=== PATIENT | female | born 1960 ===

== ENCOUNTER 2022-10-20 16:42 | Inpatient (IN) | payer MEDICARE, MEDICAID, SELFPAY ==
[2022-10-20 17:28] VITALS: BP 134/82; PULSE 70; RESP 18; TEMP 36.9; O2SAT 100
[2022-10-20 17:38] VITALS: BMI 21.2
[2022-10-20 18:00] VITALS: BP 127/78; PULSE 72; RESP 18; TEMP 36.1; O2SAT 98
--- NOTE | 2022-10-20 18:28 | PC.ADMIT ---
Yana Kent was admitted to at 1654 from [facility] on a section 12B for decompensation of bipolar disorder. She signed a CV with this movie writer. The precipitant of admission includes unable to care for self due to hallucinations and delusions. Yana is alert and oriented x 4. She is calm and cooperative with admission process. She is tearful and endorses some anxiety. Yana denied SI/HI/AVH but she has some delusional thought content about people shoving things under my door including bugs. She reports she is eating and sleeping well. 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 Tox screen from [facility] positive for benzos and stimulants (takes Klonopin) and she denies any current substance use however crisis assessment reports she has stimulant use d/o. She denies any physical complaints and dinner provided. Yana was placed on 5 minute checks per unit policy. Will continue to monitor for safety and changes in behavior.
--- NOTE | 2022-10-20 18:41 | PC.NURSE ---
Contacted Mirza RN at [place] [id number] for EKG as it was not in crisis assessment however did not receive it via fax. Per RN report sinus robby 58. HR 70 and regular when vitals done here. Dr. Polk notified that EKG not received.
[2022-10-20] MEDS: Gabapentin 400 MG CAPSULE 800 MG PO (20:54)
[2022-10-20] MEDS: clonazePAM 1 MG TABLET PO (20:55)
[2022-10-21] MEDS: buPROPion HCl XL 150 MG TAB.ER.24H PO (08:15)
[2022-10-21] MEDS: OLANZapine 5 MG TABLET PO ×2 (08:15→20:27)
[2022-10-21] MEDS: Levothyroxine Sodium 50 MCG TABLET PO (08:15)
[2022-10-21] MEDS: Gabapentin 400 MG CAPSULE 800 MG PO ×3 (08:15→20:27)
[2022-10-21] MEDS: clonazePAM 1 MG TABLET PO ×3 (08:15→20:26)
[2022-10-21] MEDS: Atorvastatin Calcium 80 MG TABLET PO (08:15)
[2022-10-21 08:47] VITALS: BP 136/82; PULSE 63; RESP 18; TEMP 36.9; O2SAT 99
[2022-10-21 08:52] LABS: Estimated Average Glucose 97 mg/dL
[2022-10-21 08:53] LABS: Alanine Aminotransferase 21 U/L (0-31); Albumin Level 3.8 g/dL (3.5-5.0); Alkaline Phosphatase 65 U/L (39-117); Anion Gap 12 (12-20); Aspartate Amino Transferase 19 U/L (5-31); Bilirubin Total 0.9 mg/dL (0.0-1.0); Blood Urea Nitrogen 25 mg/dL (9-16); Calcium 9.9 mg/dL (8.4-10.2); Carbon Dioxide 29 mmol/L (22-29); Chloride 107 mmol/L (96-108); Cholesterol 201 mg/dL; Creatinine Clr Calc Pharmacy 88.5; Estimated Glomerular Filt Rate > 60; Glucose Fasting 113 mg/dL (60-99); HDL Cholesterol 55 mg/dL; LDL Cholesterol Calculated 116 mg/dl; Potassium 4.6 mmol/L (3.3-5.1); Sodium 143 mmol/L (135-145); Total Protein 6.2 g/dL (6.5-8.0); Triglycerides 151 mg/dL
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
--- NOTE | 2022-10-21 13:54 | PC.NURSE ---
Patient asking for Adderall. Dr. Polk updated and visited with Patient. New orders obtained to start Adderall 5mg PO BID at 0800 and 1700. Zyprexa now 5mg PO at bedtime only.
[2022-10-21] MEDS: Amphetamine Mixed Salts 10 MG TABLET 5 MG PO (16:11)
[2022-10-21 18:00] VITALS: BP 121/77; PULSE 70; RESP 18; TEMP 36.3; O2SAT 100
[2022-10-22] MEDS: Levothyroxine Sodium 50 MCG TABLET PO (04:07)
[2022-10-22 07:30] VITALS: BP 146/92; PULSE 69; RESP 18; TEMP 36.9; O2SAT 99
[2022-10-22] MEDS: Gabapentin 400 MG CAPSULE 800 MG PO ×3 (08:44→20:00)
[2022-10-22] MEDS: buPROPion HCl XL 150 MG TAB.ER.24H PO (08:44)
[2022-10-22] MEDS: Atorvastatin Calcium 80 MG TABLET PO (08:44)
[2022-10-22] MEDS: clonazePAM 1 MG TABLET PO ×3 (08:44→20:00)
[2022-10-22] MEDS: Amphetamine Mixed Salts 10 MG TABLET 5 MG PO ×2 (08:44→15:20)
--- NOTE | 2022-10-22 11:39 | P.PNPSI_ITS ---
Subjective Subjective Date of Service: 10/22/22 Reason For Visit: Bipolar disorder Subjective Notes: Conditional Voluntary and 3 Day Interim History: The nursing staff reported the patient had been fully compliant with medications and meals. She has been pleasant and cooperative. The social media community manager reported that she has [facility] S services. The occupational therapist reported that she scored 20/30 on Burt and Jayant test of 4.8 that shows mild cognitive impairment. On interview the patient denies new symptoms she was to be discharged as soon as possible, this moment no safety concerns we will try to get more collateral information. Mental Status Exam Mental Status Exam Patient Appearance: Well Grooomed and Appropriate Patient Orientation: Person and Situation Level of Consciousness: Awake and Appropriate Patient Behavior: Guarded and Passive Mood Description: Withdrawn Affect Description: Constricted Patient Cognition Impaired: Yes Ability to Follow Directions: Good Speech Pattern: Clear Hallucinations: None Delusions: Not Present Thought Process: Distracted and Slowed Thinking Thought Content: positive for [place] and positive for Circumstantial Judgement: Fair Diagnostics Vital Signs (24Hr): Vital Signs - 24 hr 10/21/22 18:00 10/22/22 07:30 Temperature 97.4 F 98.4 F Pulse Rate 70 69 Respiratory Rate 18 18 Blood Pressure 121/77 146/92 H Pulse Oximetry 100 99 Oxygen Delivery Method Room Air Room Air BMI result Body Mass Index 21.2 Labs 10/21/22 08:10 Labs: Laboratory Results - last 48 hr 10/21/22 10/21/22 08:10 08:10 Sodium 143 Potassium 4.6 Chloride 107 Carbon Dioxide 29 Anion Gap 12 BUN 25 H Creatinine 0.64 Estim Creat Clear Calc 88.5 Estimated GFR > 60 Fasting Glucose 113 H Estimat Average Glucose 97 Hemoglobin A1c % 5.0 Calcium 9.9 Total Bilirubin 0.9 AST 19 ALT 21 Alkaline Phosphatase 65 Total Protein 6.2 L Albumin 3.8 Triglycerides 151 Cholesterol 201 LDL Cholesterol, Calc 116 HDL Cholesterol 55 Medications Medications Current Medications Acetaminophen (Acetaminophen 325 Mg Tablet) 650 mg PO Q6H PRN PRN Reason: Headache/Pain Mild Scale (1-3) Al Hydroxide/Mg Hydroxide (Magnesium Hydrox/Alum Hydrox 30 Ml Oral.Susp) 30 ml PO Q6H PRN PRN Reason: Heartburn/Nausea Amphetamine/Dextroamphetamine (Amphetamine Mixed Salts 10 Mg Tablet) 5 mg PO BID@0800,1700 [facility] Last Admin: 10/22/22 08:44 Dose: 5 mg Atorvastatin Calcium (Atorvastatin Calcium 80 Mg Tablet) 80 mg PO DAILY [facility] Last Admin: 10/22/22 08:44 Dose: 80 mg Bupropion HCl (Bupropion Hcl Xl 150 Mg Tab.Er.24h) 150 mg PO DAILY [facility] Last Admin: 10/22/22 08:44 Dose: 150 mg Clonazepam (Clonazepam 1 Mg Tablet) 1 mg PO TID [facility] Last Admin: 10/22/22 08:44 Dose: 1 mg Gabapentin (Gabapentin 400 Mg Capsule) 800 mg PO TID [facility] Last Admin: 10/22/22 08:44 Dose: 800 mg Levothyroxine Sodium (Levothyroxine Sodium 50 Mcg Tablet) 50 mcg PO DAILY@0600 [facility] Last Admin: 10/22/22 04:07 Dose: 50 mcg Magnesium Hydroxide (Milk Of Magnesia 30 Ml Oral.Susp) 30 ml PO DAILY PRN PRN Reason: Constipation Olanzapine (Olanzapine 5 Mg Tablet) 5 mg PO BEDTIME [facility] Last Admin: 10/21/22 20:27 Dose: 5 mg Allergies Allergies Allergy/AdvReac Type Severity Reaction Status Date / Time No Known Allergies Allergy Verified 10/20/22 17:10 Assessment & Plan Assessment & Plan (1) Routine history and physical examination of adult: Status: Acute Code(s): Z00.00 - Encounter for general adult medical examination without abnormal findings Plan t is a 62-year-old female with a PMH significant for?hypothyroidism, HLD, and scoliosis who is admitted to [facility] for active delusions/paranoia/hallucinations causing inability to care her herself at home. Medical consult for admission H&P. ?Patient states she is overall ?very healthy? with very few chronic medical conditions and no acute medical complaints at this time. Mood disorder Plan as per Psychiatry Hypothyroidism Continue levothyroxine HLD Continue statin Thank you for allowing us to participate in the care of this patient. Signing off at this time. Please let us know if there are any acute complaints or questions. Plan 1. Gather collateral information. 2. Continue with the same medications. 3. Reassessment with results. Reason for continued inpatient stay Substantial Risk for: inability to function, rapid decompensation and med/psych decompensation Time Spent With Patient Time: Total time managing care of this patient today __20__ minutes.
[2022-10-22 14:04] VITALS: BMI 22.8
[2022-10-22 19:59] VITALS: BP 112/72; PULSE 71; RESP 18; TEMP 36.2; O2SAT 100
[2022-10-22] MEDS: OLANZapine 5 MG TABLET PO (20:00)
[2022-10-23] MEDS: Levothyroxine Sodium 50 MCG TABLET PO (04:53)
[2022-10-23 08:21] VITALS: BP 118/85; PULSE 65; RESP 15; TEMP 36.2; O2SAT 100
[2022-10-23] MEDS: Amphetamine Mixed Salts 10 MG TABLET 5 MG PO ×2 (08:22→15:46)
[2022-10-23] MEDS: clonazePAM 1 MG TABLET PO ×3 (08:23→20:43)
[2022-10-23] MEDS: Atorvastatin Calcium 80 MG TABLET PO (08:23)
[2022-10-23] MEDS: Gabapentin 400 MG CAPSULE 800 MG PO ×3 (08:23→20:43)
[2022-10-23] MEDS: buPROPion HCl XL 150 MG TAB.ER.24H PO (08:23)
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
[2022-10-23 18:00] VITALS: BP 112/73; PULSE 74; RESP 18; TEMP 36.6; O2SAT 99
[2022-10-23] MEDS: OLANZapine 5 MG TABLET PO (20:43)
[2022-10-24] MEDS: Levothyroxine Sodium 50 MCG TABLET PO (06:29)
[2022-10-24 08:15] VITALS: BP 113/82; PULSE 61; RESP 12; TEMP 37.1; O2SAT 99
[2022-10-24] MEDS: Atorvastatin Calcium 80 MG TABLET PO (08:18)
[2022-10-24] MEDS: Amphetamine Mixed Salts 10 MG TABLET 5 MG PO ×2 (08:18→15:20)
[2022-10-24] MEDS: clonazePAM 1 MG TABLET PO ×3 (08:19→20:20)
[2022-10-24] MEDS: buPROPion HCl XL 150 MG TAB.ER.24H PO (08:19)
[2022-10-24] MEDS: Gabapentin 400 MG CAPSULE 800 MG PO ×3 (08:19→20:20)
--- NOTE | 2022-10-24 17:01 | HO.PSYCHPN ---
Subjective Subjective Date of Service: 10/24/22 Reason For Visit: Bipolar disorder Subjective Notes: 3 Day (expires 10/26) Medical Problems Affecting Mental Status: No Interim History: Remains delusional, stating that people are breaking into her home and causing a mess. Wants to find section 8 housing elsewhere Medication Compliance: Yes Side effects from medications: No Attending Groups: Yes Review of Systems Acute medical concerns: No Medical Review of Systems: unchanged Mental Status Exam Mental Status Exam Patient Appearance: Unkempt Patient Orientation: Person, Place, Time and Situation Level of Consciousness: Awake Patient Behavior: Appropriate Mood Description: Happy Affect Description: Calm Patient Cognition Impaired: No Ability to Follow Directions: Good Speech Pattern: Clear Memory Description: Intact Hallucinations: None Delusions: Paranoid Ideation Thought Process: Distracted Thought Content: positive for Disorganized Judgement: Fair Diagnostics Vital Signs (24Hr): Vital Signs - 24 hr 10/23/22 18:00 10/24/22 08:15 Temperature 97.8 F 98.7 F Pulse Rate 74 61 Respiratory Rate 18 12 Blood Pressure 112/73 113/82 Pulse Oximetry 99 99 Oxygen Delivery Method Room Air Room Air BMI result Body Mass Index 22.8 Labs 10/21/22 08:10 Medications Medications Current Medications Acetaminophen (Acetaminophen 325 Mg Tablet) 650 mg PO Q6H PRN PRN Reason: Headache/Pain Mild Scale (1-3) Al Hydroxide/Mg Hydroxide (Magnesium Hydrox/Alum Hydrox 30 Ml Oral.Susp) 30 ml PO Q6H PRN PRN Reason: Heartburn/Nausea Amphetamine/Dextroamphetamine (Amphetamine Mixed Salts 10 Mg Tablet) 5 mg PO BID@0800,1500 [facility] Last Admin: 10/24/22 15:20 Dose: 5 mg Atorvastatin Calcium (Atorvastatin Calcium 80 Mg Tablet) 80 mg PO DAILY [facility] Last Admin: 10/24/22 08:18 Dose: 80 mg Bupropion HCl (Bupropion Hcl Xl 150 Mg Tab.Er.24h) 150 mg PO DAILY [facility] Last Admin: 10/24/22 08:19 Dose: 150 mg Clonazepam (Clonazepam 1 Mg Tablet) 1 mg PO TID [facility] Last Admin: 10/24/22 15:24 Dose: 1 mg Gabapentin (Gabapentin 400 Mg Capsule) 800 mg PO TID [facility] Last Admin: 10/24/22 15:20 Dose: 800 mg Levothyroxine Sodium (Levothyroxine Sodium 50 Mcg Tablet) 50 mcg PO DAILY@0600 [facility] Last Admin: 10/24/22 06:29 Dose: 50 mcg Magnesium Hydroxide (Milk Of Magnesia 30 Ml Oral.Susp) 30 ml PO DAILY PRN PRN Reason: Constipation Olanzapine (Olanzapine 5 Mg Tablet) 5 mg PO BEDTIME [facility] Last Admin: 10/23/22 20:43 Dose: 5 mg Allergies Allergies Allergy/AdvReac Type Severity Reaction Status Date / Time No Known Allergies Allergy Verified 10/20/22 17:10 Assessment & Plan Assessment & Plan (1) Routine history and physical examination of adult: Status: Acute Code(s): Z00.00 - Encounter for general adult medical examination without abnormal findings (2) Bipolar disorder: Status: Acute Code(s): F31.9 - Bipolar disorder, unspecified Assessment and Plan: Continue current doses of zyprexa, wellbutrin, klonopin and gabapentin Plan t is a 62-year-old female with a PMH significant for?hypothyroidism, HLD, and scoliosis who is admitted to [facility] for active delusions/paranoia/hallucinations causing inability to care her herself at home. Medical consult for admission H&P. ?Patient states she is overall ?very healthy? with very few chronic medical conditions and no acute medical complaints at this time. Mood disorder Plan as per Psychiatry Hypothyroidism Continue levothyroxine HLD Continue statin Thank you for allowing us to participate in the care of this patient. Signing off at this time. Please let us know if there are any acute complaints or questions. Plan 1. Gather collateral information. 2. Continue with the same medications. 3. Reassessment with results. Reason for continued inpatient stay Substantial Risk for: inability to function Time Spent With Patient Time: Total time managing care of this patient today 20____ minutes.
[2022-10-24 18:00] VITALS: BP 111/69; PULSE 83; RESP 18; TEMP 36.2; O2SAT 95
[2022-10-24] MEDS: OLANZapine 5 MG TABLET PO (20:20)
[2022-10-25] MEDS: Levothyroxine Sodium 50 MCG TABLET PO (06:19)
[2022-10-25 08:02] VITALS: BP 107/69; PULSE 70; RESP 18; TEMP 36.7; O2SAT 98
[2022-10-25] MEDS: Gabapentin 400 MG CAPSULE 800 MG PO ×3 (08:09→20:32)
[2022-10-25] MEDS: Atorvastatin Calcium 80 MG TABLET PO (08:09)
[2022-10-25] MEDS: Amphetamine Mixed Salts 10 MG TABLET 5 MG PO ×2 (08:09→15:17)
[2022-10-25] MEDS: buPROPion HCl XL 150 MG TAB.ER.24H PO (08:09)
[2022-10-25] MEDS: clonazePAM 1 MG TABLET PO ×3 (08:09→20:32)
--- NOTE | 2022-10-25 11:46 | P.PNPSI_ITS ---
Subjective Subjective Date of Service: 10/25/22 Reason For Visit: Bipolar disorder Subjective Notes: 3 Day (expires tomorrow) Medical Problems Affecting Mental Status: No Interim History: Eating and sleeping OK. Social with peers. Frustrated that no one has done anything about her allegations of people breaking into her home. Does state that she will go back there for now while searching for other section 8 housing. Medication Compliance: Yes Side effects from medications: No Attending Groups: Yes Review of Systems Acute medical concerns: No Medical Review of Systems: unchanged Mental Status Exam Mental Status Exam Patient Appearance: Well Grooomed Patient Orientation: Person, Place, Time and Situation Level of Consciousness: Alert Patient Behavior: Appropriate Mood Description: Apprehensive Affect Description: Cheerful Patient Cognition Impaired: No Ability to Follow Directions: Good Speech Pattern: Clear Memory Description: Intact Hallucinations: None Delusions: Paranoid Ideation Thought Process: Linear Thought Content: positive for Preoccupation Judgement: Fair Diagnostics Vital Signs (24Hr): Vital Signs - 24 hr 10/24/22 18:00 10/25/22 08:02 Temperature 97.1 F 98.0 F Pulse Rate 83 70 Respiratory Rate 18 18 Blood Pressure 111/69 107/69 Pulse Oximetry 95 98 Oxygen Delivery Method Room Air Room Air BMI result Body Mass Index 22.8 Labs 10/21/22 08:10 Medications Medications Current Medications Acetaminophen (Acetaminophen 325 Mg Tablet) 650 mg PO Q6H PRN PRN Reason: Headache/Pain Mild Scale (1-3) Al Hydroxide/Mg Hydroxide (Magnesium Hydrox/Alum Hydrox 30 Ml Oral.Susp) 30 ml PO Q6H PRN PRN Reason: Heartburn/Nausea Amphetamine/Dextroamphetamine (Amphetamine Mixed Salts 10 Mg Tablet) 5 mg PO BID@0800,1500 [facility] Last Admin: 10/25/22 08:09 Dose: 5 mg Atorvastatin Calcium (Atorvastatin Calcium 80 Mg Tablet) 80 mg PO DAILY [facility] Last Admin: 10/25/22 08:09 Dose: 80 mg Bupropion HCl (Bupropion Hcl Xl 150 Mg Tab.Er.24h) 150 mg PO DAILY [facility] Last Admin: 10/25/22 08:09 Dose: 150 mg Clonazepam (Clonazepam 1 Mg Tablet) 1 mg PO TID [facility] Last Admin: 10/25/22 08:09 Dose: 1 mg Gabapentin (Gabapentin 400 Mg Capsule) 800 mg PO TID [facility] Last Admin: 10/25/22 08:09 Dose: 800 mg Levothyroxine Sodium (Levothyroxine Sodium 50 Mcg Tablet) 50 mcg PO DAILY@0600 [facility] Last Admin: 10/25/22 06:19 Dose: 50 mcg Magnesium Hydroxide (Milk Of Magnesia 30 Ml Oral.Susp) 30 ml PO DAILY PRN PRN Reason: Constipation Olanzapine (Olanzapine 5 Mg Tablet) 5 mg PO BEDTIME [facility] Last Admin: 10/24/22 20:20 Dose: 5 mg Allergies Allergies Allergy/AdvReac Type Severity Reaction Status Date / Time No Known Allergies Allergy Verified 10/20/22 17:10 Assessment & Plan Assessment & Plan (1) Routine history and physical examination of adult: Status: Acute Code(s): Z00.00 - Encounter for general adult medical examination without abnormal findings (2) Bipolar disorder: Status: Acute Code(s): F31.9 - Bipolar disorder, unspecified Assessment and Plan: Continue current doses of zyprexa, wellbutrin, klonopin and gabapentin Plan t is a 62-year-old female with a PMH significant for?hypothyroidism, HLD, and scoliosis who is admitted to [facility] for active delusions/paranoia/hallucinations causing inability to care her herself at home. Medical consult for admission H&P. ?Patient states she is overall ?very healthy? with very few chronic medical conditions and no acute medical complaints at this time. Mood disorder Plan as per Psychiatry Hypothyroidism Continue levothyroxine HLD Continue statin Thank you for allowing us to participate in the care of this patient. Signing off at this time. Please let us know if there are any acute complaints or questions. Plan 1. Gather collateral information. 2. Continue with the same medications. 3. Reassessment with results. Reason for continued inpatient stay Substantial Risk for: med/psych decompensation Time Spent With Patient Time: Total time managing care of this patient today __15__ minutes.
[2022-10-25 20:00] VITALS: BP 108/74; PULSE 73; RESP 16; TEMP 37; O2SAT 99
[2022-10-25] MEDS: OLANZapine 5 MG TABLET PO (20:32)
[2022-10-26] MEDS: Levothyroxine Sodium 50 MCG TABLET PO (06:32)
--- NOTE | 2022-10-26 06:58 | PM.PSYDC ---
DS: Providers Provider Date of Service: 10/26/22 Date of admission: 10/20/22 16:42 Date of discharge: 10/26/22 Primary care physician: Unknown Physician Consults: 10/20/22 17:25 Consult to Hospitalist Routine Comment: Consulting Provider: Hospitalist Reason For Exam: admission physical Attending physician on discharge: Carlos Enrique Polk DS: Diagnosis Discharge Diagnosis (1) Routine history and physical examination of adult: Status: Acute (2) Bipolar disorder: Status: Acute DS: Medications Discharge Medications Home Medications: Home Medications Medication Instructions Recorded Confirmed bupropion HCl 100 mg tablet,12 hr 100 mg PO BID 10/20/22 10/20/22 sustained-release clonazepam 1 mg tablet 1 mg PO TID 10/20/22 10/20/22 dextroamphetamine-amphetamine 30 1 tab PO TID 10/20/22 10/20/22 mg tablet gabapentin 800 mg tablet 800 mg PO TID 10/20/22 10/20/22 levothyroxine 50 mcg tablet 50 mcg PO QAM 10/20/22 10/20/22 olanzapine 5 mg tablet 5 mg PO DAILY 10/20/22 10/20/22 rosuvastatin 20 mg tablet 20 mg PO DAILY 10/20/22 10/20/22 Mental Status Exam Mental Status Exam Patient Appearance: Well Grooomed and Appropriate Patient Orientation: Person and Situation Level of Consciousness: Awake and Appropriate Patient Behavior: Guarded and Passive Mood Description: Calm Affect Description: Constricted Patient Cognition Impaired: No Ability to Follow Directions: Good Speech Pattern: Clear Hallucinations: None Delusions: Paranoid Ideation Thought Process: Linear Thought Content: positive for Circumstantial Judgement: Fair Data Data Completed and Pending Completed studies during hospitalization [Text1]: 10/21/22 10/21/22 08:10 08:10 Sodium 143 Potassium 4.6 Chloride 107 Carbon Dioxide 29 Anion Gap 12 BUN 25 H Creatinine 0.64 Estim Creat Clear Calc 88.5 Estimated GFR > 60 Fasting Glucose 113 H Estimat Average Glucose 97 Hemoglobin A1c % 5.0 Calcium 9.9 Total Bilirubin 0.9 AST 19 ALT 21 Alkaline Phosphatase 65 Total Protein 6.2 L Albumin 3.8 Triglycerides 151 Cholesterol 201 LDL Cholesterol, Calc 116 HDL Cholesterol 55 DS: Summary Hospital Course Hospital Course: The patient is a 62-year-old female with a past history of bipolar disorder with several ancillary services in the community such as [facility] who was initially admitted to the emergency room for psychosis elicited by paranoia that people were breaking into her apartment. Please see the HPI note for further details. On admission, the patient was pleasant and cooperative, she adamantly denies suicidal or homicidal thoughts and she was adamant stating that someone has broke into her apartment and trash it. Initially, she was reluctant to give us permission to contact her outpatient providers stating that she has always admitted into the hospital whenever she hits the emergency room. We restarted on her regular medications as per med reconciliation. While she was in the unit, there were no evident symptoms of safety concerns, she was able to participate in groups and she was future oriented. She signed a 3 day notice on admission. We could not find any safety concerns to filed for Section [place] and [place]. The patient wanted to be discharged, she wants to continue treatment with her regular outpatient psychiatrist in [place]. Since there were no safety concerns discharge planning was discussed. Time spent discussing smoking cessation with patient: 3 to 10 minutes Status at Discharge Cognitive/behavioral status at discharge: At baseline Functional status at discharge: independent ambulation Overall status at discharge: patient is back to baseline Time Spent with Patient Time attestation: Total time managing care of this patient today __30__ minutes. Time spent: Less than 30 minutes Discharge Plan Discharge Anticipated Discharge Date/Time: 10/26/22 11:00 Patient Disposition: Home, Self-Care Discharge Diagnosis: Bipolar disorder Referrals: Dr Constanza Kaur [Other] - 10/26/22 2:00 pm (Please follow up with your primary care physician as scheduled. ) Aida Cote [facility] [Other] - 10/27/22 1:00 pm (Please follow up with your [facility] clinician as scheduled. ) Dr Re[facility] [Other] - 10/30/22 (Please follow up with your psychiatrist as scheduled. ) Discharge Medications: New dextroamphetamine-amphetamine 10 mg Tablet 5 mg PO BID@0800,1500 30 Days Qty: 30 0RF Rx Instructions: Partial Fill upon patient request. olanzapine 5 mg Tablet 5 mg PO BEDTIME 30 Days Qty: 30 0RF bupropion HCl 150 mg Tablet Extended Release 24 Hr 150 mg PO DAILY 30 Days Qty: 30 0RF Continued clonazepam 1 mg tablet 1 mg PO TID 30 Days Qty: 90 0RF gabapentin 800 mg tablet 800 mg PO TID 30 Days Qty: 90 0RF levothyroxine 50 mcg tablet 50 mcg PO QAM 30 Days Qty: 30 0RF rosuvastatin 20 mg tablet 20 mg PO DAILY 30 Days Qty: 30 0RF Discontinued olanzapine 5 mg tablet 5 mg PO DAILY bupropion HCl 100 mg tablet sustained-release 12 hr 100 mg PO BID dextroamphetamine-amphetamine 30 mg tablet 1 tab PO TID Discharge Orders: Discharge Order (Routine); Ordered 10/26/22 Ordered By: Carlos Enrique Polk Diet: Advance to usual diet Activity on Discharge: As tolerated Stand Alone Forms: Patient Portal Discharge page, Community Support Care Plan Goals: Care plan goals achieved in this admission Health Concerns: Continue treatment with outpatient primary care physician Plan of Treatment: Continue treatment with his regular psychiatrist and other outpatient providers. Assessment: Middle-aged female with a past history of bipolar disorder who was admitted into the facility since she had an emergency room stating that she was paranoid. No evidence of safety concerns, her behavior was pleasant, cooperative with no evidence of safety concerns in the community. The patient signed a 3 day notice and she is going to be discharged to her home with her regular providers.
[2022-10-26 08:20] VITALS: BP 151/78; PULSE 70; RESP 16; TEMP 36.7; O2SAT 97
[2022-10-26] MEDS: Gabapentin 400 MG CAPSULE 800 MG PO (08:22)
[2022-10-26] MEDS: Amphetamine Mixed Salts 10 MG TABLET 5 MG PO (08:23)
[2022-10-26] MEDS: buPROPion HCl XL 150 MG TAB.ER.24H PO (08:24)
[2022-10-26] MEDS: clonazePAM 1 MG TABLET PO (08:24)
[2022-10-26] MEDS: Atorvastatin Calcium 80 MG TABLET PO (08:24)
== END 2022-10-26 10:12 | disposition home or self-care (01) | DRG 885 ==
PROVIDERS: Psychiatry & Neurology Psychiatry; Admitting Provider Psychiatry & Neurology Psychiatry; Visit Provider Psychiatry & Neurology Psychiatry
DX: F31.9 Bipolar disorder, unspecified (principal); E03.9 Hypothyroidism, unspecified; E78.5 Hyperlipidemia, unspecified; F17.210 Nicotine dependence, cigarettes, uncomplicated; Z71.6 Tobacco abuse counseling; Z79.890 Hormone replacement therapy; Z79.899 Other long term (current) drug therapy
CPT/HCPCS: 36415; 80053; 80061; 83036

== ENCOUNTER → 2022-10-20 16:42 | Outpatient (BNV) | payer MEDICARE, MEDICAID, SELFPAY | PROVIDERS: Admitting Provider Psychiatry & Neurology Psychiatry; Visit Provider Psychiatry & Neurology Psychiatry | DX: F31.9 Bipolar disorder, unspecified (principal) | CPT/HCPCS: 99221; 99231; 99232; 99238 ==

== ENCOUNTER → 2022-10-20 16:42 | Outpatient (BNV) | payer MEDICARE, MEDICAID, SELFPAY | PROVIDERS: Admitting Provider Psychiatry & Neurology Psychiatry; Visit Provider Student in an Organized Health Care Education/Training Program | DX: Z02.2 Encounter for examination for admission to residential institution (principal) | CPT/HCPCS: 99429 ==